=== PATIENT | male | born 1970 | race Two or more races ===

== ENCOUNTER 2019-06-24 14:42 | Emergency (ER) | payer BC, OTHER ==
[~2019-06-24] VITALS: Ht 167.6 cm; Wt 99.8 kg
[2019-06-24 14:56] VITALS: BP 117/77
--- NOTE | 2019-06-24 15:31 | NUR ---
Patient discharged to home in stable condition. Written and verbal after care instructions given. Patient verbalizes understanding of instruction.
== END 2019-06-24 15:31 | disposition home or self-care (01) ==
LOC: ER 14:49
DX: J34.0 Abscess, furuncle and carbuncle of nose (principal)

== ENCOUNTER 2021-10-03 02:00 | Emergency (ER) | payer OTHER ==
[~2021-10-03] VITALS: Ht 172.7 cm; Wt 102.1 kg
--- NOTE | 2021-10-03 02:11 | NUR ---
BIBFAMILYRIGHT BACK PAIN. S/P TRIP AND FALL, LANDED ON R SIDE. DENIES HEAD TRAUMA OR BLOOD THINNER USE. CHANGED INTO GOWN AND NO GROSS TRAUMA NOTED ON ASSESSMENT. PLACED ON MONITOR AND V/S WNL.
[2021-10-03] MEDS ORDERED: ACETAMINOPHEN ES 500 MG TABLET ONE (02:56)
[2021-10-03] MEDS ORDERED: CYCLOBENZAPRINE 10 MG TABLET ONE (02:57)
[2021-10-03] MEDS ORDERED: CYCLOBENZAPRINE 10 MG TABLET PO ONE (03:00)
[2021-10-03] MEDS ORDERED: ACETAMINOPHEN 325 MG TABLET PO ONE (03:00)
[2021-10-03] MEDS ORDERED: LIDOCAINE 5% (PATCH) 1 EA PATCH TP SCH (03:00)
--- NOTE | 2021-10-03 03:49 | NUR ---
XRAY AT BEDSIDE
[2021-10-03] MEDS ORDERED: IBUP-1953 PO (04:55)
[2021-10-03] MEDS ORDERED: CYCL5TAB PO (04:55)
[2021-10-03] MEDS ORDERED: LIDO30AD10 TP (04:55)
--- NOTE | 2021-10-03 05:04 | NUR ---
Patient discharged to home in stable condition. Written and verbal after care instructions given. Patient verbalizes understanding of instruction. Pt provided with incentive spirometer and educated on its use. Pt verbalizes underastanding and accurately demonstrates use. Pt ambulatory with steady gait.
[2021-10-03 05:12] VITALS: BP 145/88
== END 2021-10-03 05:12 | disposition home or self-care (01) ==
LOC: ER 02:00
DX: S39.012A Strain of muscle, fascia and tendon of lower back, initial encounter (principal); S20.211A Contusion of right front wall of thorax, initial encounter; W10.1XXA Fall (on)(from) sidewalk curb, initial encounter; Y93.89 Activity, other specified; Y92.89 Other specified places as the place of occurrence of the external cause; Y99.8 Other external cause status
CPT/HCPCS: 71100-TC; 72110-TC